=== PATIENT | male | born 1955 | race Caucasian/White ===

== ENCOUNTER 2025-06-14 11:59 | Emergency (ER) | payer MEDICARE ==
[~2025-06-14] VITALS: Ht 182.9 cm; Wt 148.2 kg
[2025-06-14] MEDS ORDERED: ATORVASTATIN CA40 MG PO (12:20)
[2025-06-14] MEDS ORDERED: AMLODIPINE BESYL5 MG PO (12:20)
[2025-06-14] MEDS ORDERED: LOSARTAN POTASS50 MG PO (12:20)
[2025-06-14] MEDS ORDERED: ELIQUIS5 MG PO (12:20)
[2025-06-14 12:31] LABS: BASOPHILS 0.1 % (0.2-1.2); EOSINOPHILS 1.0 % (0.8-7.0); LYMPHOCYTES 18.0 % (21.8-53.1); MCH 30.5 PG (25.7-32.2); MCHC 33.3 g/dL (32.3-36.5); MCV 91.6 fL (79.0-92.2); MONOCYTES 6.4 % (5.3-12.2); NEUTROPHILS 74.2 % (34.0-67.9); RBC 4.98 M/uL (4.63-6.08)
[2025-06-14 12:57] LABS: ALT (SGPT) 36.0 U/L (14-59); AST (SGOT) 11.0 U/L (15-37); GLOMERULAR FILTRATION RATE,EST 96.0 mL/min (>60); PROTEIN, TOTAL 7.2 g/dL (6.4-8.2); UREA NITROGEN 14.0 mg/dL (7-18)
[2025-06-14 14:49] VITALS: BP 164/85
--- NOTE | 2025-06-15 15:03 | EKG ---
[facility] [address] [facility] [place] [address] Signed Sinus bradycardia Right bundle branch block Abnormal ECG No previous ECGs available Confirmed by Dimitri Lay MD () on 06/15/2025 3:02:59 PM Electronically Signed By: DIMITRI LAY MD 06/15/25 1503 PATIENT NAME: LAUREANO BARKLEY Electrocardiogram DATE OF : 59 PHYSICIAN: DIMITRI LAY MD REPORT #: [id number] REPORT IS CONFIDENTIAL AND NOT TO BE RELEASED WITHOUT AUTHORIZATION
== END 2025-06-14 14:49 | disposition home or self-care (01) ==
LOC: ED 11:59
PROVIDERS: Emergency Medicine
DX: R55 Syncope and collapse (principal); Z88.0 Allergy status to penicillin; Z79.01 Long term (current) use of anticoagulants; Z86.718 Personal history of other venous thrombosis and embolism; Z79.899 Other long term (current) drug therapy; Z86.711 Personal history of pulmonary embolism
CPT/HCPCS: 36415; 71045; 71260; 80053; 83880; 84484; 85025; 93005; 93010; 99284-25; Q9967